=== PATIENT | male | born 1940 | race Caucasian/White ===

== ENCOUNTER 2018-12-09 18:14 | Inpatient (IN) ==
--- NOTE | 2018-12-09 18:50 | Diag Imaging Result Doc PS360 ---
EXAM: CHEST-1 VIEW HISTORY: fever TECHNIQUE: Chest single view COMPARISON: 11/10/2017 FINDINGS: The lungs are well expanded. The heart is not enlarged. The vessels are not distended. There are no infiltrates. No effusion identified. IMPRESSION: No pneumonia Electronically signed by Viktor Barrett 12/09/2018 6:48 PM
[2018-12-09 19:09] LABS: BASO# 0.02 X1000 (0.0-0.2); BASO% 0.1 % (0.0-0.8); EOS# 0.04 X1000 (0.0-0.7); EOS% 0.2 % (0.0-10.0); HEMATOCRIT 34.9 % (42.0-52.0); HEMOGLOBIN 11.5 g/dL (14.0-18.0); IMM GRAN# 0.05 X1000 (0.0-0.04); IMM GRAN% 0.2 % (0.0-0.5); LYMPH# 0.87 X1000 (1.2-3.4); LYMPH% 4.3 % (20.5-51.1); MCH 30.3 PG (27-31); MCV 92.1 FL (81-99); MONO# 1.19 X1000 (0.11-0.59); MONO% 5.9 % (1.7-9.3); NEUT# 17.92 X1000 (1.4-6.5); NEUT% 89.3 % (42.2-75.2); PLT 179 X1000 (130-400); RBC 3.79 XMIL (4.7-6.1); RDW 13.2 % (11.5-14.5); WBC 20.09 X1000 (4.8-10.8)
[2018-12-09 19:13] LABS: INR 2.45; PROTIME 27.2 Seconds (11.0-16.0)
[2018-12-09 19:14] LABS: PTT 44.5 Seconds (22.3-41.8)
--- NOTE | 2018-12-09 19:24 | PROVIDER DOCUMENTATION ---
HPI-Fever - General Chief Complaint: Male Stated Complaint: BLADDER ISSUES Time Seen by Provider: 12/09/18 18:57 Source: patient, family Allergies/Adverse Reactions: Patient Allergies Allergy/AdvReac Type Severity Reaction Status Date / Time alprazolam [From Xanax] Allergy Intermediate Unknown Verified 12/09/18 19:48 aspirin AdvReac Unknown Verified 12/09/18 19:48 Home Medications: Home Medication List Medication Instructions Recorded Confirmed Last Taken Type Lorazepam 0.5 mg PO BID 02/25/12 11/10/17 11/10/17 History Metformin [Glucophage] 500 mg PO QHS 02/25/12 11/10/17 11/09/17 History Pramipexole [Mirapex] 0.5 mg PO QHS 02/25/12 11/10/17 11/09/17 History Lisinopril [Zestril] 2.5 mg PO DAILY 07/08/15 11/10/17 11/10/17 History Amitriptyline [Elavil] 50 mg PO QHS 11/10/17 11/10/17 11/09/17 History Donepezil HCl 5 mg PO QHS 11/10/17 11/10/17 11/09/17 History Levothyroxine [Synthroid] 100 microgm PO QAM 11/10/17 11/10/17 Unknown History SIMVAstatin [Zocor] 40 mg PO QHS 11/10/17 11/10/17 11/09/17 History - History of Present Illness-Fever Nature of Presenting Problem: 78 yr old M, with PMHx significant for HTN, type 2 DM, frequent bladder and UTI, presents with one day hx of urinary frequency, incontinence and confusion. The patient's provides the history. She states that the patient began to experience urinary frequency yesterday, so much so that he required an adult di aper. He did not exhibit any other symptoms at that time, but this morning when they awoke, he continued to have urinary frequency, as well as a low grade of 100.2. A repeat temp of 100.4 was obtained later this afternoon, prior to presentation. No medication was given at home. The also reports that he exhibited some confusion, not being able to recall how many children he had. He was also noted to have generalized shakes. He denies nausea, vomiting, cough, changes in vision. Fever Severity/Quality: reports: low grade Onset/Duration: reports: 4-6 hours ago Timing: reports: still present Severity: reports: moderate Context: reports: confusion Recent Illness?: reports: none Cognitive Baseline: alert but confused Modifying Factors: improves with: nothing Associated Symptoms: reports: genitourinary problems, nausea, weakness Similar Symptoms Previously?: Yes (history of sepsis a few years ago) Recently seen or treated by another doctor?: No - Glascow Coma Score Best Eye Response (Steele): (4) open spontaneously Best Verbal Response (Steele): (5) oriented Best Motor Response (Yolanda): (6) obeys commands Steele Total: 15 Review of Systems - Adult - REVIEW OF SYSTEMS - ADULT Constitutional: reports: fever, fatique Eyes: reports: no symptoms reported Ears, Nose, Mouth & Throat: reports: no symptoms reported Cardiovascular: reports: no symptoms reported Respiratory: reports: no symptoms reported Gastrointestinal: reports: no symptoms reported Genitourinary: reports: frequency, incontinence Musculoskeletal: reports: back pain Integumentary: reports: no symptoms reported Neurological: reports: no symptoms reported Psychiatric: reports: no symptoms reported Endocrine: reports: no symptoms reported Hematologic/Lymphatic: reports: no symptoms reported Allergic/Immunologic: reports: no symptoms reported Past History - Adult - PAST MEDICAL HISTORY-ADULT Review of Records: reports: Medications Reviewed Major Childhood Illnesses: reports: denies history Cardiovascular: reports: HTN, hyperlipidemia Obstetrical/Gynecological: denies: denies history, - spont/elective, ectopic , endometriosis, fibroids, ovarian cysts, PID/STD, uterine/ovarian cancer, other Genitourinary: reports: incontinence, chronic UTI's Neurological: reports: dementia Endocrine/Immune: reports: Diabetes - PRIOR SURGERIES/PROCEDURES Surgical/Procedure History: reports: reviewed, not pertinent - IMMUNIZATION STATUS Childhood Immunizations: See Nurse Assessment Flu Vaccine: See Nurse Assessment - FAMILY HISTORY Family History: reviewed, not pertinent - SOCIAL HISTORY Smoking: denies Living Situation: family Physical Exam-General - PHYSICAL EXAM-ADULT Initial Vital Signs Reviewed: Yes - CONSTITUTIONAL General Appearance: alert, no apparent distress - EYES Eyes: PERRL/EOMI - HEAD, EARS, NOSE, MOUTH & THROAT HENMT: normocephalic/atraumatic - NECK Neck: non-tender - RESPIRATORY Respiratory: chest non-tender, lungs clear, normal breath sounds - CARDIOVASCULAR Cardiovascular: regular rate, rhythm, no JVD - GASTROINTESTINAL (ABDOMEN) Abdominal Exam: normal bowel sounds, non tender, soft - MUSCULOSKELETAL Back Exam: no CVA tenderness Extremity: non-tender - PSYCHIATRIC Psych/Mental Status: oriented x 3 Progress - PLAN OF CARE/RESULTS Progress/Plan/Lab Results: Vital Signs - 8 hr 12/09/18 18:16 12/09/18 18:29 12/09/18 18:32 Temperature 100.6 F H Pulse Rate 125 H Respiratory Rate 20 Blood Pressure 128/73 162/77 153/75 O2 Sat by Pulse Oximetry 96 96 96 12/09/18 19:02 12/09/18 19:32 12/09/18 19:39 Temperature 99.6 F Pulse Rate Respiratory Rate Blood Pressure 148/73 144/75 O2 Sat by Pulse Oximetry 96 97 12/09/18 20:02 12/09/18 20:32 12/09/18 21:02 Temperature Pulse Rate Respiratory Rate Blood Pressure 143/73 151/76 145/75 O2 Sat by Pulse Oximetry 96 95 96 12/09/18 21:32 Temperature Pulse Rate Respiratory Rate Blood Pressure 150/78 O2 Sat by Pulse Oximetry 96 Laboratory Results - last 24 hr 12/09/18 12/09/18 12/09/18 18:44 18:44 18:44 WBC 20.09 H RBC 3.79 L Hgb 11.5 L Hct 34.9 L MCV 92.1 MCH 30.3 MCHC 33.0 RDW Std Deviation 13.2 Plt Count 179 MPV 11.0 H Immature Gran % (Auto) 0.2 Neut % (Auto) 89.3 H Lymph % (Auto) 4.3 L Coke % (Auto) 5.9 Eos % (Auto) 0.2 Baso % (Auto) 0.1 Immature Gran # (Auto) 0.05 H Neut # (Auto) 17.92 H Lymph # (Auto) 0.87 L Coke # (Auto) 1.19 H Eos # (Auto) 0.04 Baso # (Auto) 0.02 Segmented Neutrophils 89 H Lymphocytes 5 L Monocytes 6 Large Platelets OCCASIONAL PT INR PTT (Actin FS) Sodium 134 L Potassium 4.9 Chloride 101 Carbon Dioxide 24 L Anion Gap 9 BUN 25 H Creatinine 1.2 Estimated GFR/1.73 m2 59 BUN/Creatinine Ratio 21 Glucose 252 H Calculated Osmolality 281 Calcium 8.4 L Total Bilirubin 0.60 AST 31 ALT 31 Alkaline Phosphatase 107 Creatine Kinase 97 Troponin T Total Protein 6.0 L Albumin 3.7 Globulin 2.3 Albumin/Globulin Ratio 1.6 Plasma Lactate 2.0 Urine Source Urine Color Urine Turbidity Urine pH Ur Specific [place] Urine Protein Ur Glucose (Stick) Ur Ketones (Stick) Urine Blood Urine Nitrite Urine Bilirubin Urobilinogen Dipstick Urine Leukocytes Urine WBC (Auto) Urine RBC (Auto) U Epithel Cells (Auto) Urine Bacteria (Auto) 12/09/18 12/09/18 12/09/18 18:44 18:44 19:23 WBC RBC Hgb Hct MCV MCH MCHC RDW Std Deviation Plt Count MPV Immature Gran % (Auto) Neut % (Auto) Lymph % (Auto) Coke % (Auto) Eos % (Auto) Baso % (Auto) Immature Gran # (Auto) Neut # (Auto) Lymph # (Auto) Coke # (Auto) Eos # (Auto) Baso # (Auto) Segmented Neutrophils Lymphocytes Monocytes Large Platelets PT 27.2 H INR 2.45 PTT (Actin FS) 44.5 H Sodium Potassium Chloride Carbon Dioxide Anion Gap BUN Creatinine Estimated GFR/1.73 m2 BUN/Creatinine Ratio Glucose Calculated Osmolality Calcium Total Bilirubin AST ALT Alkaline Phosphatase Creatine Kinase Troponin T < 0.010 Total Protein Albumin Globulin Albumin/Globulin Ratio Plasma Lactate Urine Source CATH Urine Color YELLOW Urine Turbidity CLEAR Urine pH 7.0 Ur Specific [place] 1.024 Urine Protein 50 A Ur Glucose (Stick) >1000 A Ur Ketones (Stick) NEGATIVE Urine Blood MODERATE A Urine Nitrite NEGATIVE Urine Bilirubin NEGATIVE Urobilinogen Dipstick 12 A Urine Leukocytes LARGE A Urine WBC (Auto) TNTC A Urine RBC (Auto) TNTC A U Epithel Cells (Auto) <10 Urine Bacteria (Auto) 4+ 12/09/18 22:56 WBC RBC Hgb Hct MCV MCH MCHC RDW Std Deviation Plt Count MPV Immature Gran % (Auto) Neut % (Auto) Lymph % (Auto) Coke % (Auto) Eos % (Auto) Baso % (Auto) Immature Gran # (Auto) Neut # (Auto) Lymph # (Auto) Coke # (Auto) Eos # (Auto) Baso # (Auto) Segmented Neutrophils Lymphocytes Monocytes Large Platelets PT INR PTT (Actin FS) Sodium Potassium Chloride Carbon Dioxide Anion Gap BUN Creatinine Estimated GFR/1.73 m2 BUN/Creatinine Ratio Glucose Calculated Osmolality Calcium Total Bilirubin AST ALT Alkaline Phosphatase Creatine Kinase Troponin T Total Protein Albumin Globulin Albumin/Globulin Ratio Plasma Lactate 0.9 Urine Source Urine Color Urine Turbidity Urine pH Ur Specific [place] Urine Protein Ur Glucose (Stick) Ur Ketones (Stick) Urine Blood Urine Nitrite Urine Bilirubin Urobilinogen Dipstick Urine Leukocytes Urine WBC (Auto) Urine RBC (Auto) U Epithel Cells (Auto) Urine Bacteria (Auto) Orders Category Date Time Status Cardiac Monitoring DIRECTED Care 12/09/18 18:21 Active IV Insertion ORDERED Care 12/09/18 18:21 Completed Notify MD of + Sepsis Screen NOW Care 12/09/18 18:21 Active Notify Physician As Ordered Care 12/09/18 18:21 Active CHEST-1 VIEW [RAD] Stat Exams 12/09/18 18:21 Completed BLOOD CULTURE [BLDCUL] Stat Lab 12/09/18 18:44 Results CBC WITH DIFF [HEME] Stat Lab 12/09/18 18:44 Completed CK PROFILE [SP CHEM] Stat Lab 12/09/18 18:44 Completed COMPREHENSIVE METABOLIC PANEL [CHEM] Stat Lab 12/09/18 18:44 Completed LACTATE, PLASMA [CHEM] Lab 12/09/18 22:56 Completed LACTATE, PLASMA [CHEM] Lab 12/10/18 00:30 Uncollected LACTATE, PLASMA [CHEM] Q3H Lab 12/09/18 18:44 Completed PROTIME WITH INR [COAG] Stat Lab 12/09/18 18:44 Completed PTT [COAG] Stat Lab 12/09/18 18:44 Completed TROPONIN T Stat Lab 12/09/18 18:44 Completed URINALYSIS W/POSS RFLX CULT [URINALYSIS] Stat Lab 12/09/18 19:23 Completed URINE CULTURE [RM] Routine Lab 12/09/18 19:48 Received 0.9% Sodium Chloride Inj [Ns] 1,000 ml Med 12/09/18 19:29 Discontinued IV 999 mls/hr 0.9% Sodium Chloride Inj [Ns] 1,000 ml Med 12/09/18 20:13 Discontinued IV 999 mls/hr Piperacillin/Tazobactam [Zosyn] 3.375 gm Med 12/09/18 21:00 Active 0.9% Sodium Chloride Inj [Ns] 50 ml IV Q6H Oxygen Device Stat Oth 12/09/18 18:21 Completed Transfer/Admit Order [TRANSFER] Routine Transfer 12/09/18 20:45 Ordered Result Diagrams: 12/09/18 18:44 12/09/18 18:44 - REASSESSMENT Reassessment #1 Time Reassessed: 20:17 Reassessment Comment: stable, temp down to 99.6 - CONSULTS/PCP/HOSPITALIST Notification #1 *Consult/PCP/Hospitalist*: Dr. Nuñez Time Discussed: 20:44 Consult Disposition: Admit Departure - Departure Date of Disposition Decision: 12/09/18 Time of Disposition Decision: 20:50 DIAGNOSIS: UTI (urinary tract infection) Qualifiers: Urinary tract infection type: acute cystitis Hematuria presence: with hematuria Qualified Code(s): N30.01 - Acute cystitis with hematuria Disposition: ADMITTED INPATIENT 09 Certified Medical Emergency: Urgent Condition: Fair Referrals and Follow-Ups: Perez Martel MD [Primary Care Provider] - - Critical Care Note This patient required my direct & personal management of CC.: No Attestation - Physician/ EVELYN Attestation Patient care was provided by Advanced Practice Provider:: No The physician spent face to face time with patient:: Yes Advanced Practice Provider documentation review:: Supervising physician onsite and consulted in the evaluation and care of this patient. The physician did have a face to face encounter with the patient.
[2018-12-09 19:29] LABS: LYMPHS 5 % (21-51); MONO 6 % (1-9); SEGS 89 % (42-75)
[2018-12-09] MEDS ORDERED: NS 1,000 ML IV ONE ×2 (19:29→20:13)
[2018-12-09 19:30] LABS: LARGE PLATELETS OCCASIONAL
[2018-12-09 19:41] LABS: ALB/GLOB RATIO 1.6; ALBUMIN 3.7 g/dL (3.5-5.0); CALCIUM 8.4 mg/dL (8.8-10.2); CREATININE 1.2 mg/dL (0.7-1.2); POTASSIUM 4.9 mmol/L (3.5-5.1); TOTAL BILIRUBIN 0.6 mg/dL (0.20-1.00)
[2018-12-09 19:43] LABS: URINE SOURCE CATH
[2018-12-09 19:45] LABS: BILIRUBIN URINE NEGATIVE (NEGATIVE); BLOOD URINE MODERATE (NEGATIVE); COLOR YELLOW; GLUCOSE URINE >1000 mg/dL (NEGATIVE); KETONE URINE NEGATIVE (NEGATIVE); LEUKOCYTES URINE LARGE (NEGATIVE); NITRITE URINE NEGATIVE (NEGATIVE); PROTEIN URINE 50 mg/dL (NEGATIVE); SP GRAVITY URINE 1.024; TURBIDITY URINE CLEAR (CLEAR); UROBILINOGEN URINE 12 mg/dL (NORMAL)
[2018-12-09 19:46] LABS: UR EPITHELIAL CELLS <10 /HPF (<10); URINE BACTERIA 4+ /HPF; URINE RBC TNTC /HPF (<10); URINE WBC TNTC /HPF (<10)
[2018-12-09] MEDS ORDERED: ZOSYN 3.375 GM in NS 50 ML IV SCH (21:00)
--- NOTE | 2018-12-09 21:58 | HISTORY AND PHYSICAL ---
PRIMARY CARE PHYSICIAN: Dr. Martel. CHIEF COMPLAINT: Urinary frequency, fever, chills for several days. HISTORY OF PRESENT ILLNESS: A 78-year-old male with a history of diabetes mellitus type 2, sleep apnea, CVA, hypothyroidism who had presented to emergency department due to patient having fever and chills and urinary frequency for the past several days. The patient's states that he was also getting confused more than usual. The patient was evaluated in the emergency department. His symptoms were consistent with possible early sepsis. Subsequently, he will require admission for further management. At the time of my examination, patient was able to deny any headache, nausea, vomiting, diarrhea, chest pain, shortness of breath or any weight changes but complained of not feeling well and having fevers and urinary frequency. PAST MEDICAL HISTORY: Include diabetes mellitus type 2, sleep apnea, hyperlipidemia, CVA, hypothyroidism, COPD. PAST SURGICAL HISTORY: Superficial skin surgery for skin cancer. ALLERGIES: Xanax and aspirin. CURRENT MEDICATIONS: He does not recall and nursing staff will reconcile. SOCIAL HISTORY: No history of smoking, history of alcohol use in the past, he is currently sober. Denies any history of illicit drug use. FAMILY HISTORY: Positive for coronary disease in mother. REVIEW OF SYSTEMS: Fourteen point review of systems is as in HPI. Other systems negative. PHYSICAL EXAMINATION: GENERAL: Cooperative, friendly male. He is resting more comfortably now. VITAL SIGNS: Temperature 100.6 degrees, pulse 125, respirations 20, blood pressure 128/73. HEENT: Atraumatic, normocephalic. Extraocular movements intact. PERRLA. The patient is hard of hearing. NECK: No masses. CHEST: Clear to auscultation. CARDIOVASCULAR: Regular rate and rhythm. ABDOMEN: Soft. Positive bowel sounds. EXTREMITIES: No edema. NEUROLOGIC: He is awake, alert, oriented x3. : No bladder distention. SKIN: Warm. LABORATORIES AND STUDIES: WBC 20.09, hemoglobin 11.5, hematocrit 34.9, platelets 179,000. Sodium 134, potassium 4.9, chloride 101, CO2 24, BUN is 25, creatinine 1.2, glucose 252. UA shows leukocytes and +4 bacteria. Chest x-ray is negative. ASSESSMENT: 78-year-old male with a history of diabetes mellitus type 2, sleep apnea, hypertension and hyperlipidemia who presented to the emergency department due to patient having fevers and chills and urinary frequency for the past several days. He was evaluated in the emergency department. Symptoms consistent with early sepsis. Subsequently he will require admission for further management. 1. Early sepsis with symptoms of altered mental status, fever, chills, tachycardia. 2. Urinary tract infection. 3. Diabetes mellitus type 2. 4. Hypertension. PLAN: 1. We will admit patient to medical floor with telemetry. 2. We will check blood cultures and urine cultures. Start patient on IV antibiotics. 3. We will monitor blood glucose put patient on sliding scale insulin regimen. 4. Monitor blood pressure closely. 5. Put patient on DVT prophylaxis with SCDs. 6. We will continue to follow and reassess. Make further recommendation based on patient's clinical course. cc: Neri Nuñez MD
[2018-12-10] MEDS ORDERED: ZOFRAN IV PRN (00:28)
[2018-12-10] MEDS: NS 1,000 ML IV SCH ×3 (01:15→20:16)
[2018-12-10] MEDS: ZOSYN 3.375 GM in NS 50 ML IV SCH ×4 (01:22→18:01)
[2018-12-10] MEDS: HUMULIN R SUBQ SCH ×5 (01:36→20:10)
[2018-12-10] MEDS: TYLENOL PO PRN ×3 (02:45→20:08)
[2018-12-10 06:50] LABS: BASO# 0.02 X1000 (0.0-0.2); BASO% 0.1 % (0.0-0.8); EOS# 0.07 X1000 (0.0-0.7); EOS% 0.4 % (0.0-10.0); HEMATOCRIT 34.4 % (42.0-52.0); HEMOGLOBIN 11.1 g/dL (14.0-18.0); IMM GRAN# 0.05 X1000 (0.0-0.04); IMM GRAN% 0.3 % (0.0-0.5); LYMPH# 1.59 X1000 (1.2-3.4); LYMPH% 9.2 % (20.5-51.1); MCHC 32.3 g/dL (33-37); MONO# 1.02 X1000 (0.11-0.59); MONO% 5.9 % (1.7-9.3); MPV 11.3 FL (7.4-10.4); NEUT# 14.52 X1000 (1.4-6.5); NEUT% 84.1 % (42.2-75.2); PLT 165 X1000 (130-400); RDW 13.3 % (11.5-14.5); WBC 17.27 X1000 (4.8-10.8)
[2018-12-10 07:05] LABS: AGAP 5; BUN 15 mg/dL (8-22); CALCIUM 8.4 mg/dL (8.8-10.2); CHLORIDE 103 mmol/L (98-107); COSMO 269; ESTIMATED GFR > 60; GLUCOSE 132 mg/dL (70-104); POTASSIUM 4.6 mmol/L (3.5-5.1); SODIUM 133 mmol/L (136-145); TCO2 25 mmol/L (25-35)
--- NOTE | 2018-12-10 11:00 | PROGRESS NOTE ---
DATE: 12/10/2018 A 78-year-old, white gentleman admitted with urinary frequency, dysuria, fever, and chills. The patient also had some confusion. The patient evaluated in the ER. Found to have significant UTI. Urinalysis did reveal too numerous to count WBC, RBC, large leukocyte, and 4+ bacteria. The patient also had some confusion and patient was admitted for further care. The patient does have a complex medical history with diabetes, hypertension, history of CVA with left-sided weakness, sleep apnea, hyperlipidemia, hypothyroidism, and COPD. The patient is doing fair. He does have a mild cough with scanty sputum production. No typical chest pain or palpitations. Denied abdominal pain, nausea, vomiting. No diarrhea, blood, or mucus in the stool. Minimal residual weakness on the left side. No heat or cold intolerance. PAST MEDICAL HISTORY: NIDDM, sleep apnea, CVA, hypothyroidism, COPD, hyperlipidemia. PHYSICAL EXAMINATION: Vital Signs: Blood pressure 143/74, pulse is 84, respirations 21, temperature 98.4 degrees, T-max was 100.2 degrees. Skin: Senile turgor. HEENT: Head atraumatic and normocephalic. Limestone conjunctivae. Anicteric sclerae. Extraocular muscle movement normal. Fundus cannot be penetrated. Good oral hygiene. No tonsillopharyngeal congestion or exudate. Ears and nose benign. Neck: Supple. No JVD, thyromegaly, or lymphadenopathy. Chest: Bibasilar crepitation. Heart: S1 and S2 heard. Abdomen: Soft, globular. Bowel sounds present. VENTURE CAPITAL ANALYST: Alert, awake. Able to move all 4 limbs. Patient does have some weakness on the left side. LAB DATA: Urinalysis: Results reviewed. Electrolytes: Sodium 133, potassium 4.6, blood sugar results reviewed, calcium 8.4. PT/INR 2.45. CBC: Patient did have leukocytosis, hemoglobin 11.1, hematocrit 34.4, platelets 165,000. The patient does have a left shift. CONSIDERATION: 1. Metabolic encephalopathy, most likely due to urinary tract infection. 2. Noninsulin-dependent diabetes mellitus. 3. History of cerebrovascular accident with left-sided weakness. 4. Hypertension. 5. Sleep apnea. 6. History suggestive of chronic obstructive pulmonary disease. PLAN: Patient's home medications reviewed and continued. We will continue current antibiotics. The patient does have a history of hypothyroidism, on Synthroid. We will continue. Hyperlipidemia, on Zocor. BPH, on Flomax. Labs and medications noted. Overall plan discussed with the patient and he is in agreement. cc: MD Romaine Morris MD
[2018-12-10] MEDS: MIRALAX PO SCH (12:01)
[2018-12-10] MEDS: SYNTHROID PO SCH (12:02)
[2018-12-10] MEDS: ATIVAN PO SCH ×2 (12:02→20:08)
[2018-12-10] MEDS: PRINIVIL PO SCH (12:02)
[2018-12-10] MEDS: FLOMAX PO SCH (18:01)
[2018-12-10] MEDS: ELAVIL PO SCH (20:08)
[2018-12-10] MEDS: COUMADIN PO SCH (20:08)
[2018-12-10] MEDS: MIRAPEX PO SCH (20:08)
[2018-12-10] MEDS: ARICEPT PO SCH (20:08)
[2018-12-10] MEDS: ZOCOR PO SCH (20:08)
[2018-12-10] MEDS: GLUCOPHAGE PO SCH (20:08)
[2018-12-11] MEDS: ZOSYN 3.375 GM in NS 50 ML IV SCH ×4 (00:20→20:56)
[2018-12-11] MEDS: HUMULIN R SUBQ SCH ×4 (06:07→21:03)
[2018-12-11] MEDS: SYNTHROID PO SCH (06:25)
[2018-12-11 06:40] LABS: INR 1.75; PROTIME 20.8 Seconds (11.0-16.0)
[2018-12-11 06:46] LABS: MCH 30.5 PG (27-31); MCHC 33.3 g/dL (33-37); MCV 91.4 FL (81-99); RBC 3.94 XMIL (4.7-6.1)
[2018-12-11 06:47] LABS: BASO# 0.02 X1000 (0.0-0.2); BASO% 0.2 % (0.0-0.8); EOS# 0.12 X1000 (0.0-0.7); EOS% 1.3 % (0.0-10.0); LYMPH# 0.95 X1000 (1.2-3.4); LYMPH% 10.3 % (20.5-51.1); MONO# 0.57 X1000 (0.11-0.59); MONO% 6.2 % (1.7-9.3); MPV 11.1 FL (7.4-10.4); NEUT# 7.54 X1000 (1.4-6.5); PLT 154 X1000 (130-400)
[2018-12-11 06:59] LABS: AGAP 10; ALBUMIN 2.9 g/dL (3.5-5.0); ALKALINE PHOSPHATASE 102 U/L (32-122); BUN 13 mg/dL (8-22); CALCIUM 8.6 mg/dL (8.8-10.2); CHLORIDE 104 mmol/L (98-107); COSMO 275; ESTIMATED GFR > 60; GLUCOSE 160 mg/dL (70-104); GOT 20 U/L (10-34); GPT 25 U/L (10-44); SODIUM 136 mmol/L (136-145); TCO2 22 mmol/L (25-35); TOTAL BILIRUBIN 0.59 mg/dL (0.20-1.00); TOTAL PROTEIN 5.8 g/dL (6.3-8.3)
[2018-12-11] MEDS: MIRALAX PO SCH (09:09)
[2018-12-11] MEDS: ATIVAN PO SCH ×2 (09:10→21:02)
[2018-12-11] MEDS: PRINIVIL PO SCH (09:10)
[2018-12-11 09:36] LABS: INR 1.65; PROTIME 19.8 Seconds (11.0-16.0)
[2018-12-11] MEDS: TYLENOL PO PRN (15:15)
--- NOTE | 2018-12-11 19:32 | PROGRESS NOTE ---
DATE: 12/11/2018 SUBJECTIVE: A 78-year-old white gentleman was admitted to the hospital with altered mental status and UTI. Apparently, patient had some mental breakdown prior to this admission, drove all the way to the [facility] in [place]. Obviously, the patient had a workup done there. I do not have the reports. We will review the reports from medical records. He had abnormal CT. We will also review. Interval history was reviewed. Patient is eating well, intermittent choking spell. PAST MEDICAL HISTORY: Reviewed. SURGICAL HISTORY: Reviewed. MEDICINES: Reviewed. ALLERGIES: Alprazolam and aspirin. OBJECTIVE: Vital Signs: He has a fever of 102, pulse 100, blood pressure is 159/82. HEENT Exam: Within normal limits. Neck: Supple. Chest: Bilateral air entry. Cardiovascular: Heart sounds are regular. Abdomen: Belly is soft, nontender. Taylor was placed. INVESTIGATIONS: White cell count came down from 20 to 9.2, hematocrit 36, platelets 154,000, PT 19, INR 1.6. Sodium 136, potassium 4.0, chloride 104, BUN 13, creatinine 1.0, glucose 160. Liver function tests were normal and urine cultures positive for E coli. Blood cultures are negative. ASSESSMENT AND PLAN: 1. Urinary tract infection. Continue IV Zosyn. 2. Intermittent choking. Barium swallow with speech evaluation. Consult GI. 3. PT consult. 4. Restless legs syndrome on Mirapex. 5. Hyperlipidemia on Zocor. 6. Paroxysmal atrial fibrillation with stroke on warfarin. Continue daily monitor. 7. Anxiety on Ativan 0.5 p.o. b.i.d. 8. Hypothyroidism on Synthroid 100 mcg daily. 9. Mild cognitive impairment, Aricept 5 mg daily. 10. Chronic insomnia, Elavil 50 at bedtime and continue IV Zosyn and daily monitoring CBC, BMP, prothrombin time, abnormal CT. We will review the reports. 11. Discussed with family at bedside. LEVEL OF DOCUMENTATION: 30 minutes. cc: Romaine Martel MD
[2018-12-11] MEDS: COUMADIN PO SCH (21:02)
[2018-12-11] MEDS: FLOMAX PO SCH (21:02)
[2018-12-11] MEDS: MIRAPEX PO SCH (21:02)
[2018-12-11] MEDS: GLUCOPHAGE PO SCH (21:02)
[2018-12-11] MEDS: ARICEPT PO SCH (21:02)
[2018-12-11] MEDS: ELAVIL PO SCH (21:03)
[2018-12-11] MEDS: ZOCOR PO SCH (21:03)
[2018-12-12] MEDS: ZOSYN 3.375 GM in NS 50 ML IV SCH ×4 (01:53→20:03)
[2018-12-12] MEDS: HUMULIN R SUBQ SCH ×4 (06:05→21:00)
[2018-12-12] MEDS: SYNTHROID PO SCH (06:05)
[2018-12-12 06:45] LABS: INR 1.68; PROTIME 20.1 Seconds (11.0-16.0)
[2018-12-12 07:05] LABS: BASO# 0.02 X1000 (0.0-0.2); BASO% 0.3 % (0.0-0.8); EOS# 0.19 X1000 (0.0-0.7); EOS% 2.8 % (0.0-10.0); HEMATOCRIT 35.1 % (42.0-52.0); HEMOGLOBIN 11.7 g/dL (14.0-18.0); IMM GRAN# 0.02 X1000 (0.0-0.04); IMM GRAN% 0.3 % (0.0-0.5); LYMPH# 0.74 X1000 (1.2-3.4); MCH 30.2 PG (27-31); MCHC 33.3 g/dL (33-37); MCV 90.5 FL (81-99); MONO# 0.63 X1000 (0.11-0.59); MONO% 9.4 % (1.7-9.3); NEUT# 5.12 X1000 (1.4-6.5); NEUT% 76.2 % (42.2-75.2); PLT 172 X1000 (130-400); RBC 3.88 XMIL (4.7-6.1); RDW 12.9 % (11.5-14.5); WBC 6.72 X1000 (4.8-10.8)
[2018-12-12 07:43] LABS: AGAP 11; BUN 16 mg/dL (8-22); CALCIUM 8.7 mg/dL (8.8-10.2); CHLORIDE 103 mmol/L (98-107); COSMO 276; CREATININE 0.9 mg/dL (0.7-1.2); ESTIMATED GFR > 60; GLUCOSE 154 mg/dL (70-104); POTASSIUM 4.1 mmol/L (3.5-5.1); SODIUM 136 mmol/L (136-145); TCO2 22 mmol/L (25-35)
--- NOTE | 2018-12-12 10:52 | Diag Imaging Result Doc PS360 ---
EXAM: BA SWALLOW W/VIDEO SPEECH THER 12/11/2018 HISTORY: possible aspiration TECHNIQUE: 164 images 150 mg, 28 seconds fluoroscopy time. COMMENT: The patient was able to swallow multiple times with liquid and thickened barium without aspiration. During fluoroscopy of the thoracic esophagus, there was a premature contraction of the upper thoracic esophagus which was associated with a mild degree of aspiration. There is no evidence of fixed stricture or obstruction in the thoracic esophagus. IMPRESSION: Episodic spasm in the upper thoracic esophagus. This was associated with a single episode of mild aspiration. Electronically signed by Flavio Clayton 12/12/2018 10:50 AM
[2018-12-12] MEDS: PRINIVIL PO SCH (11:04)
[2018-12-12] MEDS: ATIVAN PO SCH ×2 (11:05→20:04)
[2018-12-12] MEDS: MIRALAX PO SCH (11:05)
[2018-12-12] MEDS: FLOMAX PO SCH (17:24)
[2018-12-12] MEDS: ZOCOR PO SCH (20:03)
[2018-12-12] MEDS: COUMADIN PO SCH (20:03)
[2018-12-12] MEDS: MIRAPEX PO SCH (20:03)
[2018-12-12] MEDS: ELAVIL PO SCH (20:04)
[2018-12-12] MEDS: GLUCOPHAGE PO SCH (20:04)
[2018-12-12] MEDS: ARICEPT PO SCH (20:05)
--- NOTE | 2018-12-12 20:54 | PROGRESS NOTE ---
DATE: 12/12/2018 SUBJECTIVE: The patient choked yesterday. He is on NPO waiting for speech therapy evaluation, barium swallow, and still running fever. OBJECTIVE: Vital signs: On examination temp is 98 degrees. Vitals are stable. HEENT exam: Within normal limits. Neck: Is supple. Chest: Is clear. Heart: Sounds are regular. Abdomen: Belly is soft, nontender. Taylor was placed. INVESTIGATIONS: White cell count 6.7, hematocrit 35, platelet 172,000. PTT 20, INR 1.68. Sodium 136, potassium 4.1, chloride 103, BUN 16, creatinine 0.9, glucose 205. Urine cultures positive for E coli. Blood cultures were negative. ASSESSMENT: 1. Urinary tract infection with altered mental status. Continue on IV Zosyn. 2. Paroxysmal atrial fibrillation on warfarin with history of cerebrovascular accident in the past. 3. Dysphagia with possible choking. Waiting for the speech therapy evaluation. 4. Continue home medicines for diabetes and other problems. 5. We will review the prior CT scan report from [facility] from [place]. Continue present treatment. LEVEL OF DOCUMENTATION: 25 minutes. cc: Romaine Martel MD
[2018-12-13] MEDS: ZOSYN 3.375 GM in NS 50 ML IV SCH ×4 (01:13→20:04)
[2018-12-13] MEDS: HUMULIN R SUBQ SCH ×4 (06:00→20:24)
[2018-12-13] MEDS: SYNTHROID PO SCH (06:04)
[2018-12-13 06:27] LABS: INR 1.87
[2018-12-13] MEDS: MIRALAX PO SCH (09:32)
[2018-12-13] MEDS: ATIVAN PO SCH ×2 (09:32→20:10)
[2018-12-13] MEDS: PRINIVIL PO SCH (09:32)
[2018-12-13] MEDS ORDERED: CALMOSEPTINE OINTMENT TOP PRN (09:52)
[2018-12-13] MEDS: FLOMAX PO SCH (18:31)
[2018-12-13] MEDS: GLUCOPHAGE PO SCH (20:10)
[2018-12-13] MEDS: COUMADIN PO SCH (20:10)
[2018-12-13] MEDS: ELAVIL PO SCH (20:10)
[2018-12-13] MEDS: ARICEPT PO SCH (20:10)
[2018-12-13] MEDS: ZOCOR PO SCH (20:10)
[2018-12-13] MEDS: MIRAPEX PO SCH (20:10)
--- NOTE | 2018-12-13 21:33 | PROGRESS NOTE ---
DATE: 12/13/2018 SUBJECTIVE: The patient is a little better, eating well. No signs or symptoms of aspiration. OBJECTIVE: Vital Signs: Temperature is 98 degrees. Vitals are stable. HEENT: Exam within normal limits. Neck: Supple. Chest: Clear. Heart: Sounds are regular. Abdomen: Belly is soft, nontender. Good bowel sounds. Neurologic: No neurological deficits. ASSESSMENT AND PLAN: 1. Altered mental status, improving. 2. Urinary tract infection with Escherichia coli. Continue on IV Zosyn. 3. Discontinue Taylor today. 4. Out of the bed with PT. 5. Advanced the diet, closely monitoring these symptoms of signs of aspiration. 6. PAF with a stroke, currently on warfarin, doing well. DISPOSITION.: wants to go for rehab placement. Sheetrock Applicator consult next previous CT scan was reviewed. No obvious masses noted except a small nodule in the left lung. We will discuss with in the morning. Continue present treatment. LEVEL OF DOCUMENTATION: 25 minutes. cc: Romaine Martel MD
[2018-12-14] MEDS: ZOSYN 3.375 GM in NS 50 ML IV SCH ×4 (01:16→20:16)
[2018-12-14] MEDS: HUMULIN R SUBQ SCH ×4 (06:07→21:38)
[2018-12-14] MEDS: SYNTHROID PO SCH (06:07)
[2018-12-14 06:49] LABS: INR 2.13; PROTIME 24.4 Seconds (11.0-16.0)
[2018-12-14] MEDS: PRINIVIL PO SCH (09:15)
[2018-12-14] MEDS: MIRALAX PO SCH (09:16)
[2018-12-14] MEDS: ATIVAN PO SCH ×2 (09:16→21:38)
[2018-12-14] MEDS: FLOMAX PO SCH (18:02)
[2018-12-14] MEDS: ZOCOR PO SCH (20:17)
[2018-12-14] MEDS: ELAVIL PO SCH (20:17)
[2018-12-14] MEDS: GLUCOPHAGE PO SCH (20:17)
[2018-12-14] MEDS: MIRAPEX PO SCH (20:17)
[2018-12-14] MEDS: ARICEPT PO SCH (20:17)
[2018-12-14] MEDS: COUMADIN PO SCH (20:26)
--- NOTE | 2018-12-14 21:13 | PROGRESS NOTE ---
DATE: 12/14/2018 SUBJECTIVE: The patient is doing little better. Condom catheter was taken out. He had a large bowel movement. is at bedside and wants to go for rehab. Paperwork is being done. He is medically stable. OBJECTIVE: Temperature is 97 degrees, pulse is 85, blood pressure 135/65, 94% no room air.HEENT: No change. INVESTIGATIONS: Urine cultures E coli. Blood cultures were negative, which is ESBL negative. ASSESSMENT AND PLAN: 1. Altered mental status improving. 2. Escherichia coli. Continue on Levaquin for 2 weeks. 3. Diabetes, stable. 4. Hyperlipidemia, stable. 5. Hypothyroidism on Synthroid. 6. Hypertension on lisinopril 2.5 mg daily. I did review the CT results discussed with the patient. There are no alarming nodules suspicious for malignancy. 7. We will do outpatient workup. Dr. Alarcon. Continue out of the bed with physical therapy. Waiting to be placement at [facility]. We will do the paperwork for tomorrow. LEVEL OF DOCUMENTATION: 25 minutes. cc: Romaine Martel MD
[2018-12-15] MEDS: ZOSYN 3.375 GM in NS 50 ML IV SCH ×2 (02:56→09:01)
--- NOTE | 2018-12-15 06:05 | DISCHARGE SUMMARY ---
ADMISSION DATE: 12/09/2018 DISCHARGE DATE: 12/15/2018 DISCHARGING DIAGNOSES: 1. Altered mental status due to metabolic encephalopathy. 2. Urinary tract infection with ESBL negative E. Coli. 3. History of prostatitis. 4. Type 2 diabetes. 5. Sleep apnea. 6. Hyperlipidemia. 7. Cerebrovascular accident. 8. Hypothyroidism. 9. Chronic obstructive pulmonary disease. 10. History of kidney stones. 11. Sleep apnea. 12. History of dysautonomia. 13. History of PAF 14. Restless legs syndrome. 15. Umbilical hernia. PAST SURGICAL HISTORY: 1. Penile prosthetic device. 2. UPPP. 3. Right cataract surgery. 4. Melanoma removed. 5. Right zygoma. 6. Benign prostate biopsies. BRIEF HISTORY: Please see the H and P that was done by hospitalist. In brief, he is a 78-year- old white gentleman who recently had intermittent mental status changes admitted to [facility] for altered mental status. The patient was seen by psychiatrist. He has mild cognitive impairment based on the mini-mental exam. Anyhow, he was admitted with a fever of 102, and altered mental status. Urine positive for ESBL Escherichia coli. The patient was given IV Zosyn. It is sensitive to Levaquin. Condom catheter was placed. He was extremely weak and given physical therapy. The patient's requests to go for rehab for convalescence. Patient had CT of the chest that was done in [place]. I did review and there were no suspicious lesions for having any malignancy. Findings were reassuring. There is a very subtle nodule on the left lower lobe, which is less than 2 mm. The patient came back to the [facility] and waiting for rehab placement. LABORATORY: CBC: White cell count 6.7, hematocrit 35, and platelets 172,000. PT 24, INR 2.13, and glucose 200. Sodium 136, potassium 4.1, chloride 103, BUN 16, creatinine 0.9. Urine cultures E. Coli ESBL negative. Blood cultures were negative. DISCHARGE INSTRUCTIONS: 1. Mirapex 0.5 mg at bedtime. 2. Metformin 500 daily. 4. Zestril 2.5 daily. 5. Elavil 50 at bedtime. 6. Aricept 5 mg daily. 7. Synthroid 100 mcg daily. 8. Simvastatin 40 daily. 9. Warfarin 5 and 10 mg every other day, and check on it every 3 days since he has been on antibiotics. 10. Flomax 0.4 daily. 11. MiraLAX 17 g daily. 12. Finasteride 5 mg daily. 13. Levaquin 500 daily for 10 days. 14. Initiate vaccination protocol. 15. Pneumococcal vaccine 23 was given in 2009. We will give pneumococcal 13 prior to the discharge. cc: Romaine Martel MD MTDD
[2018-12-15] MEDS: SYNTHROID PO SCH (06:29)
[2018-12-15] MEDS: HUMULIN R SUBQ SCH ×2 (06:50→11:11)
[2018-12-15 07:56] VITALS: BP 138/74
[2018-12-15] MEDS ORDERED: PREVNAR 13 IM ONE (08:29)
[2018-12-15] MEDS: PRINIVIL PO SCH (09:01)
[2018-12-15] MEDS: MIRALAX PO SCH (09:01)
[2018-12-15] MEDS: ATIVAN PO SCH (09:01)
== END 2018-12-15 13:21 | DRG 689 ==
LOC: ED 18:14 → 3N 18:15 → SUATTDRO 18:15
PROVIDERS: ADMIT Internal Medicine; ATTEND Internal Medicine

== ENCOUNTER 2019-02-22 13:04 | Inpatient (IN) ==
[2019-02-22] MEDS ORDERED: CARDIZEM IV ONE (13:38)
[2019-02-22] MEDS ORDERED: NS 1,000 ML IV ONE ×3 (13:39→16:58)
[2019-02-22 13:54] LABS: BASO# 0.02 X1000 (0.0-0.2); BASO% 0.1 % (0.0-0.8); EOS# 0.02 X1000 (0.0-0.7); EOS% 0.1 % (0.0-10.0); HEMOGLOBIN 11.1 g/dL (14.0-18.0); IMM GRAN# 0.02 X1000 (0.0-0.04); IMM GRAN% 0.1 % (0.0-0.5); LYMPH# 0.73 X1000 (1.2-3.4); LYMPH% 5.1 % (20.5-51.1); MCH 29.8 PG (27-31); MCHC 32.6 g/dL (33-37); MCV 91.4 FL (81-99); MONO# 0.89 X1000 (0.11-0.59); MONO% 6.2 % (1.7-9.3); MPV 10.9 FL (7.4-10.4); NEUT# 12.75 X1000 (1.4-6.5); NEUT% 88.4 % (42.2-75.2); PLT 163 X1000 (130-400); RBC 3.72 XMIL (4.7-6.1); RDW 12.6 % (11.5-14.5); WBC 14.43 X1000 (4.8-10.8)
--- NOTE | 2019-02-22 14:01 | Diag Imaging Result Doc PS360 ---
EXAM: CHEST-1 VIEW HISTORY: altered MSE TECHNIQUE: Single view COMPARISON: 12/09/2018 FINDINGS: The lungs are well expanded. The heart is borderline mildly prominent. The vessels are not distended. There are no infiltrates. No effusion identified. IMPRESSION: Stable chest Electronically signed by Viktor Barrett 02/22/2019 1:59 PM
[2019-02-22 14:03] LABS: BANDS 6 % (0-1); LYMPHS 12 % (21-51); SEGS 82 % (42-75)
--- NOTE | 2019-02-22 14:19 | EKG Report ---
Test Performed on : 02/22/2019 1:33:06 PM Test Reason : afib? Blood Pressure : / mmHG Vent. Rate : 118 BPM Atrial Rate : 084 BPM P-R Int : 000 ms QRS Dur : 098 ms QT Int : 384 ms P-R-T Axes : 000 014 235 degrees QTc Int : 538 ms Atrial fibrillation. with rapid ventricular response. Marked ST abnormality, possible inferior subendocardial injury Marked ST abnormality, possible anteroseptal subendocardial injury Prolonged QT Abnormal ECG When compared with ECG of 11-NOV-2017 06:55, Significant changes have occurred Unconfirmed Result
--- NOTE | 2019-02-22 14:19 | Diag Imaging Result Doc PS360 ---
EXAM: CT HEAD W/O CONTRAST HISTORY: SUDDEN ALTERED MSE, ON COUMADIN TECHNIQUE: CT head without contrast COMPARISON: 11/10/2017 FINDINGS: No parenchymal hemorrhage. No epidural or subdural hematoma. No subarachnoid hemorrhage. Mild atrophy with chronic microvascular ischemic changes. No mass identified on this noncontrasted exam. No hydrocephalus. No sinus opacification. IMPRESSION: 1.No hemorrhage 2.There is atrophy with chronic microvascular ischemic changes similar to the prior study This exam was performed using automated exposure control, adjustment of mA or kV according to patient size, and/or use of iterative reconstruction technique. Electronically signed by Viktor Barrett 02/22/2019 2:17 PM
[2019-02-22 14:21] LABS: AGAP 15; ALB/GLOB RATIO 1.9; ALBUMIN 3.7 g/dL (3.5-5.0); ALKALINE PHOSPHATASE 94 U/L (32-122); BUN 33 mg/dL (8-22); CALCIUM 8.4 mg/dL (8.8-10.2); CHLORIDE 95 mmol/L (98-107); COSMO 275; ESTIMATED GFR > 60; GLUCOSE 223 mg/dL (70-104); GOT 16 U/L (10-34); GPT 12 U/L (10-44); MAGNESIUM 1.6 mg/dL (1.5-2.7); POTASSIUM 3.6 mmol/L (3.5-5.1); SODIUM 130 mmol/L (136-145); TCO2 20 mmol/L (25-35); TOTAL BILIRUBIN 0.56 mg/dL (0.20-1.00); TOTAL PROTEIN 5.7 g/dL (6.3-8.3)
[2019-02-22] MEDS ORDERED: LEVAQUIN 500 MG/D5W 500 MG/100 ML IVPB IV ONE (15:30)
[2019-02-22 15:51] LABS: ALLEN TEST NO; BE -9.3 mmoll (-3.0-3.0); BLOOD TYPE ARTERIAL; HCO3-(ACT) 17.6 mmoll (20.0-26.0); METHB 0.7 % (0.0-1.5); O2(CT) 14.1 mL/dL (15.0-23.0); O2HB 91.6 % (95.0-99.0); PO2(98.6) 73 mmHg (60-100); SAMPLE BLOOD; SAO2 93.2 % (95.0-100.0); THB 10.9 g/dL (11.5-17.4)
[2019-02-22 15:54] LABS: PCO2(98.6) 67 mmHg (35-45)
[2019-02-22 15:55] LABS: MODALITY VENTIMASK
--- NOTE | 2019-02-22 16:57 | PROVIDER DOCUMENTATION ---
This chart was entered by Sadie Lowe Scribe, acting as scribe for Primo Thurman MD. HPI-Neurological Disorder - General Stated Complaint: STROKE LIKE SX Time Seen by Provider: 02/22/19 13:17 Source: family Allergies/Adverse Reactions: Patient Allergies Allergy/AdvReac Type Severity Reaction Status Date / Time alprazolam [From Xanax] Allergy Intermediate Unknown Verified 12/09/18 19:48 aspirin AdvReac Unknown Verified 12/09/18 19:48 Home Medications: Home Medication List Medication Instructions Recorded Confirmed Last Taken Type Metformin [Glucophage] 500 mg PO QHS 02/25/12 12/10/18 11/09/17 History Pramipexole [Mirapex] 0.5 mg PO QHS 02/25/12 12/10/18 11/09/17 History Lisinopril [Zestril] 2.5 mg PO DAILY 07/08/15 12/10/18 11/10/17 History Amitriptyline [Elavil] 50 mg PO QHS 11/10/17 12/10/18 11/09/17 History Donepezil HCl 5 mg PO QHS 11/10/17 12/10/18 11/09/17 History Levothyroxine [Synthroid] 100 microgm PO QAM 11/10/17 12/10/18 Unknown History SIMVAstatin [Zocor] 40 mg PO QHS 11/10/17 12/10/18 11/09/17 History Polyethylene Glycol 3350 [Miralax] 17 gm PO DAILY 12/10/18 12/10/18 Unknown History Tamsulosin HCl 0.4 mg DAILY 12/10/18 12/10/18 12/09/18 History Warfarin Sodium 5 mg EVERY OTHER DAY 12/10/18 12/10/18 12/09/18 History 5 Warfarin Sodium [Coumadin] 10 mg PO EVERY OTHER DAY 12/10/18 12/10/18 12/08/18 History Finasteride [Proscar] 5 mg PO QHS 12/13/18 12/14/18 Unknown History Levofloxacin [Levaquin] 500 mg PO DAILY #10 tab 12/15/18 Unknown Rx - History of Present Illness-Neuro Nature of Presenting Problem: Patient is a 78 year old male who presents to the ED via EMS with altered mental status. Family states finding the patient unresponsive prior to arrival. states she last saw the patient normal at 0700. reports history of CVA in 1996 with mild left side deficits. states patient takes Coumadin. Severity: reports: mild Onset/Duration: reports: just prior to arrival Timing: reports: improving Context: reports: found unresponsive by family Character of Altered Mental Status: reports: unresponsive Associated Symptoms: reports: denies symptoms Similar Symptoms Previously?: No Recently seen or treated by another doctor?: Yes Review of Systems - Adult - REVIEW OF SYSTEMS - ADULT ROS:: ROS per family Constitutional: reports: no symptoms reported Eyes: reports: no symptoms reported Ears, Nose, Mouth & Throat: reports: no symptoms reported Cardiovascular: reports: no symptoms reported Respiratory: reports: no symptoms reported Gastrointestinal: reports: diarrhea. denies: nausea, vomiting Genitourinary: reports: no symptoms reported Musculoskeletal: reports: no symptoms reported Integumentary: reports: no symptoms reported Neurological: reports: see HPI, other (AMS - unresponsive). denies: dizziness/vertigo, headache/migraines Psychiatric: reports: no symptoms reported Endocrine: reports: no symptoms reported Hematologic/Lymphatic: reports: no symptoms reported Allergic/Immunologic: reports: no symptoms reported All Other Systems: Reviewed and Negative Past History - Adult - PAST MEDICAL HISTORY-ADULT Review of Records: reports: Old Records Reviewed, Nursing Assessment Review, Medications Reviewed, Social history reviewed & non-contributory. Major Childhood Illnesses: reports: denies history Cardiovascular: reports: HTN, hyperlipidemia Respiratory: reports: COPD, sleep apnea Gastrointestinal: reports: denies history Obstetrical/Gynecological: reports: denies history Genitourinary: reports: chronic UTI's Musculoskeletal: reports: denies history Neurological: reports: CVA, dementia Endocrine/Immune: reports: Diabetes Other Conditions: reports: denies history - PRIOR SURGERIES/PROCEDURES Surgical/Procedure History: reports: reviewed, not pertinent - IMMUNIZATION STATUS Childhood Immunizations: See Nurse Assessment Flu Vaccine: See Nurse Assessment - FAMILY HISTORY Family History: reviewed, not pertinent - SOCIAL HISTORY Smoking: denies Substance Use: denies Living Situation: family Physical Exam- Neurological - Physical Exam-Neuro Initial Vital Signs Reviewed: Yes General Appearance: alert, no apparent distress, slow to respond. negative: obtunded HENMT: normocephalic/atraumatic, other (dry mucous membranes). negative: angioedema Head Injury: no evidence of injury. negative: active bleeding, lacerations Respiratory: chest non-tender, lungs clear, normal breath sounds. negative: crackles, rales, wheezing Cardiovascular: normal peripheral pulses, tachycardia. negative: systolic murmur Abdominal Exam: normal bowel sounds, non tender, soft. negative: guarding, rebound Extremity: normal inspection. negative: deformity, erythema Neurologic: grossly normal. negative: aphasia, facial droop, motor weakness Integumentary: normal color, normal turgor, diaphoresis. negative: pallor Psych/Mental Status: oriented x 3, other (slow to respond). negative: anxious Progress - PLAN OF CARE/RESULTS Progress/Plan/Lab Results: Vital Signs - 8 hr 02/22/19 13:10 02/22/19 13:15 02/22/19 13:30 Temperature 97.6 F Pulse Rate 114 H 113 H 134 H Respiratory Rate 26 H 25 H 25 H Blood Pressure 163/71 163/71 O2 Sat by Pulse Oximetry 97 94 L 92 L 02/22/19 13:40 02/22/19 13:45 02/22/19 13:51 Temperature Pulse Rate 117 H 137 H 123 H Respiratory Rate 22 27 H 26 H Blood Pressure 93/50 84/53 105/64 O2 Sat by Pulse Oximetry 86 L 93 L 93 L 02/22/19 14:12 02/22/19 14:16 02/22/19 14:21 Temperature Pulse Rate 123 H 123 H 122 H Respiratory Rate 25 H 23 27 H Blood Pressure 103/49 94/49 109/51 O2 Sat by Pulse Oximetry 91 L 86 L 92 L 02/22/19 14:27 02/22/19 14:32 02/22/19 14:36 Temperature Pulse Rate 127 H 138 H 127 H Respiratory Rate Blood Pressure 85/41 89/39 101/49 O2 Sat by Pulse Oximetry 97 95 91 L 02/22/19 14:46 02/22/19 14:51 02/22/19 14:56 Temperature Pulse Rate 115 H 117 H 113 H Respiratory Rate 26 H 34 H 28 H Blood Pressure 67/47 101/49 73/42 O2 Sat by Pulse Oximetry 91 L 91 L 91 L 02/22/19 15:01 02/22/19 15:06 02/22/19 15:11 Temperature Pulse Rate 123 H 144 H 118 H Respiratory Rate 25 H 28 H 28 H Blood Pressure 83/47 78/42 83/45 O2 Sat by Pulse Oximetry 90 L 93 L 90 L 02/22/19 15:16 02/22/19 15:21 02/22/19 15:26 Temperature Pulse Rate 121 H 115 H 131 H Respiratory Rate 26 H 25 H 28 H Blood Pressure 84/45 82/59 92/45 O2 Sat by Pulse Oximetry 87 L 91 L 90 L 02/22/19 15:31 02/22/19 15:36 02/22/19 15:41 Temperature Pulse Rate 117 H 116 H 120 H Respiratory Rate 25 H 34 H 24 Blood Pressure 89/64 55/43 78/52 O2 Sat by Pulse Oximetry 88 L 85 L 91 L 02/22/19 15:55 02/22/19 15:56 02/22/19 16:01 Temperature Pulse Rate 131 H 139 H 114 H Respiratory Rate 24 24 21 Blood Pressure 91/65 75/45 94/66 O2 Sat by Pulse Oximetry 99 99 99 02/22/19 16:06 02/22/19 16:09 02/22/19 16:11 Temperature Pulse Rate 123 H 118 H Respiratory Rate 22 22 Blood Pressure 100/54 89/58 O2 Sat by Pulse Oximetry 96 99 99 02/22/19 16:16 Temperature Pulse Rate 121 H Respiratory Rate 21 Blood Pressure 101/51 O2 Sat by Pulse Oximetry 99 Laboratory Results - last 24 hr 02/22/19 02/22/19 02/22/19 13:22 13:31 13:31 WBC 14.43 H RBC 3.72 L Hgb 11.1 L Hct 34.0 L MCV 91.4 MCH 29.8 MCHC 32.6 L RDW Std Deviation 12.6 Plt Count 163 MPV 10.9 H Immature Gran % (Auto) 0.1 Neut % (Auto) 88.4 H Lymph % (Auto) 5.1 L [place] % (Auto) 6.2 Eos % (Auto) 0.1 Baso % (Auto) 0.1 Immature Gran # (Auto) 0.02 Neut # (Auto) 12.75 H Lymph # (Auto) 0.73 L [place] # (Auto) 0.89 H Eos # (Auto) 0.02 Baso # (Auto) 0.02 Segmented Neutrophils 82 H Band Neutrophils 6 H Lymphocytes 12 L Specimen Type Sample Site pH pCO2 pO2 HCO3 Base Excess Oxyhemoglobin ABG O2 Sat (Calculated) ABG O2 Saturation ABG Carboxyhemoglobin ABG Methemoglobin Jarod Test A-a O2 Difference Total Hemoglobin Lactate Liter Flow Blood Gas Modality FiO2 % Sodium 130 L Potassium 3.6 Chloride 95 L Carbon Dioxide 20 L Anion Gap 15 BUN 33 H Creatinine 1.0 Estimated GFR/1.73 m2 > 60 BUN/Creatinine Ratio 33 Glucose 223 H POC Glucose 216 H Calculated Osmolality 275 Calcium 8.4 L Magnesium 1.6 Total Bilirubin 0.56 AST 16 ALT 12 Alkaline Phosphatase 94 Troponin T Ghi-F-Iblsuvbugyr Pept Total Protein 5.7 L Albumin 3.7 Globulin 2.0 Albumin/Globulin Ratio 1.9 Plasma Lactate 02/22/19 02/22/19 02/22/19 13:31 13:31 15:50 WBC RBC Hgb Hct MCV MCH MCHC RDW Std Deviation Plt Count MPV Immature Gran % (Auto) Neut % (Auto) Lymph % (Auto) [place] % (Auto) Eos % (Auto) Baso % (Auto) Immature Gran # (Auto) Neut # (Auto) Lymph # (Auto) [place] # (Auto) Eos # (Auto) Baso # (Auto) Segmented Neutrophils Band Neutrophils Lymphocytes Specimen Type ARTERIAL Sample Site L BRACHIAL pH 7.10 L* pCO2 67 H* pO2 73 HCO3 17.6 L Base Excess -9.3 L Oxyhemoglobin 91.6 L ABG O2 Sat (Calculated) 14.1 L ABG O2 Saturation 93.2 L ABG Carboxyhemoglobin 1.00 ABG Methemoglobin 0.7 Jarod Test NO A-a O2 Difference 200.0 Total Hemoglobin 10.9 L Lactate 1.50 Liter Flow 15.0 Blood Gas Modality VENTIMASK FiO2 % 50.0 Sodium Potassium Chloride Carbon Dioxide Anion Gap BUN Creatinine Estimated GFR/1.73 m2 BUN/Creatinine Ratio Glucose POC Glucose Calculated Osmolality Calcium Magnesium Total Bilirubin AST ALT Alkaline Phosphatase Troponin T < 0.010 Kvf-C-Hrpavrmvfpb Pept 311 Total Protein Albumin Globulin Albumin/Globulin Ratio Plasma Lactate 02/22/19 02/22/19 15:54 15:54 WBC RBC Hgb Hct MCV MCH MCHC RDW Std Deviation Plt Count MPV Immature Gran % (Auto) Neut % (Auto) Lymph % (Auto) [place] % (Auto) Eos % (Auto) Baso % (Auto) Immature Gran # (Auto) Neut # (Auto) Lymph # (Auto) [place] # (Auto) Eos # (Auto) Baso # (Auto) Segmented Neutrophils Band Neutrophils Lymphocytes Specimen Type Sample Site pH pCO2 pO2 HCO3 Base Excess Oxyhemoglobin ABG O2 Sat (Calculated) ABG O2 Saturation ABG Carboxyhemoglobin ABG Methemoglobin Jarod Test A-a O2 Difference Total Hemoglobin Lactate Liter Flow Blood Gas Modality FiO2 % Sodium Potassium Chloride Carbon Dioxide Anion Gap BUN Creatinine Estimated GFR/1.73 m2 BUN/Creatinine Ratio Glucose POC Glucose Calculated Osmolality Calcium Magnesium Total Bilirubin AST ALT Alkaline Phosphatase Troponin T < 0.010 Nqo-T-Jekvyjmupog Pept Total Protein Albumin Globulin Albumin/Globulin Ratio Plasma Lactate 1.7 Orders Category Date Time Status Admit [facility] Routine [id number] 02/22/19 16:01 Active Resuscitation Status Routine Care 02/22/19 14:04 Ordered CHEST-1 VIEW [RAD] Stat Exams 02/22/19 13:[address] HEAD W/O CONTRAST [CT] Stat Exams 02/22/19 13:29 Completed ABG [RESP] Routine Lab 02/22/19 15:50 Completed BNP [PRO B-NATRIURETIC PEPTIDE] Stat Lab 02/22/19 13:31 Completed CBC WITH DIFF [HEME] Stat Lab 02/22/19 13:31 Completed COMPREHENSIVE METABOLIC PANEL [CHEM] Stat Lab 02/22/19 13:31 Completed LACTATE, PLASMA [CHEM] Stat Lab 02/22/19 15:54 Completed MAGNESIUM [CHEM] Stat Lab 02/22/19 13:31 Completed TROPONIN T Stat Lab 02/22/19 13:31 Completed TROPONIN T Stat Lab 02/22/19 15:54 Completed URINALYSIS W/POSS RFLX CULT [URINALYSIS] Stat Lab 02/22/19 16:43 Ordered 0.9% Sodium Chloride Inj [Ns] 1,000 ml Med 02/22/19 13:39 Discontinued IV 500 mls/hr 0.9% Sodium Chloride Inj [Ns] 1,000 ml Med 02/22/19 14:39 Discontinued IV 999 mls/hr Diltiazem [Cardizem] Med 02/22/19 13:38 Discontinued 15 mg IV NOW ONE Levofloxacin 500 mg/D5w [Levaquin 500 mg/D5w] Med 02/22/19 15:30 Discontinued 500 mg in 100 ml IV NOW BIPAP Stat Oth 02/22/19 16:08 Active EKG [EKG] Stat Ther 02/22/19 13:29 Draft EKG [EKG] Stat Ther 02/22/19 15:54 Ordered Transfer/Admit Order [TRANSFER] Routine Transfer 02/22/19 16:02 Ordered Result Diagrams: 02/22/19 13:31 02/22/19 13:31 - EKG 1 Time of EKG reading by physician:: 13:33 EKG Read and Signed by:: Primo Thurman EKG Interpretation (*Must complete 3 of following elements*): Abnormal (marked ST abnormality, possible anteroseptal subendocardial injury; prolonged QT) Rate: 118 Rhythm: atrial fibrillation with rapid ventricular response Drayden: normal Comments: marked ST abnormality, possible inferior subendocardial injury; - XRAY 1 XRAY Study: Chest Impression: See EMR Report ( EXAM: CHEST-1 VIEW HISTORY: altered MSE TECHNIQUE: Single view COMPARISON: 12/09/2018 FINDINGS: The lungs are well expanded. The heart is borderline mildly prominent. The vessels are not distended. There are no infiltrates. No effusion identified. IMPRESSION: Stable chest Electronically signed by Viktor Barrett 02/22/2019 1:59 PM 02/22/19 1359 Interpreting Physician: Viktor Barrett MD Dictated Date/Time: 02/22/19 1359 cc: Primo Thurman MD; Perez Martel MD) - CT/MRI 1 CT Study: Head Impression: See EMR Report ( EXAM: CT HEAD W/O CONTRAST HISTORY: SUDDEN ALTERED MSE, ON COUMADIN TECHNIQUE: CT head without contrast COMPARISON: 11/10/2017 FINDINGS: No parenchymal hemorrhage. No epidural or subdural hematoma. No subarachnoid hemorrhage. Mild atrophy with chronic microvascular ischemic changes. No mass identified on this noncontrasted exam. No hydrocephalus. No sinus opacification. IMPRESSION: 1.No hemorrhage 2.There is atrophy with chronic microvascular ischemic changes similar to the prior study This exam was performed using automated exposure control, adjustment of mA or kV according to patient size, and/or use of iterative reconstruction technique. Electronically signed by Viktor Barrett 02/22/2019 2:17 PM 02/22/19 1417 Interpreting Physician: Viktor Barrett MD Dictated Date/Time: 02/22/19 1415 cc: Primo Thurman MD; Perez Martel MD) - CONSULTS/PCP/HOSPITALIST Notification #1 *Consult/PCP/Hospitalist*: Dr. Martel Time Discussed: 16:00 Reason/Comments: Dr. Thurman consulted with Dr. Martel about patient. Consult Disposition: Admit Departure - Departure Date of Disposition Decision: 02/22/19 Time of Disposition Decision: 16:01 DIAGNOSIS: Paroxysmal atrial fibrillation, Altered mental status Disposition: ADMITTED INPATIENT 09 Certified Medical Emergency: Emergent Condition: Critical - Critical Care Note This patient required my direct & personal management of CC.: Yes Total Time (mins): 47 Critical Care Statement: This patient required my direct personal management to treat or rule out processes, the absence of which, could potentiallly result in sudden, clinically significant life or limb threatening deterioration. Attestation - Physician/ EVELYN Attestation The physician spent face to face time with patient:: Yes Advanced Practice Provider documentation review:: Supervising physician onsite and consulted in the evaluation and care of this patient. The physician did have a face to face encounter with the patient. This chart was documented by the indicated scribe, (Sadie Lowe Scribe) and accurately reflects the services I performed and decisions made by me, Primo Thurman MD, as attested by the provider's signature.
[2019-02-22] MEDS ORDERED: NS 1,000 ML IV SCH (17:00)
[2019-02-22 17:02] LABS: BILIRUBIN URINE NEGATIVE (NEGATIVE); BLOOD URINE NEGATIVE (NEGATIVE); COLOR YELLOW; GLUCOSE URINE 1000 mg/dL (NEGATIVE); KETONE URINE TRACE mg/dL (NEGATIVE); LEUKOCYTES URINE TRACE (NEGATIVE); NITRITE URINE NEGATIVE (NEGATIVE); PH URINE 5.5; PROTEIN URINE TRACE mg/dL (NEGATIVE); SP GRAVITY URINE 1.021; TURBIDITY URINE CLEAR (CLEAR); URINE SOURCE CATH; UROBILINOGEN URINE NORMAL (NORMAL)
[2019-02-22 17:03] LABS: UR EPITHELIAL CELLS >10 /HPF (<10); URINE BACTERIA NEGATIVE /HPF; URINE RBC <10 /HPF (<10); URINE WBC <10 /HPF (<10)
[2019-02-22] MEDS ORDERED: ATIVAN IV PRN (17:42)
[2019-02-22] MEDS: MORPHINE IV PRN ×3 (17:49→18:52)
[2019-02-22] MEDS ORDERED: ATROPINE 1 % OPHTH SOLN SL PRN (17:50)
[2019-02-22 17:56] VITALS: BP 66/31
[2019-02-22] MEDS ORDERED: TRANSDERM-SCOP TD ONE (18:32)
--- NOTE | 2019-02-22 19:09 | HISTORY AND PHYSICAL ---
CHIEF COMPLAINT: Altered mental status, increased work of breathing, aspiration, low blood pressure. HISTORY OF PRESENT ILLNESS: He is a 78-year-old white gentleman who came to the emergency room by EMS with altered mental status. Family states he was unresponsive prior to arrival. The last time saw him this morning before cataract surgery. The patient had low blood pressure, dehydrated. Emergency room workup was reviewed. He has been hospitalized basically for hypotension, aspiration pneumonia and placed on BiPAP. The patient was on hospice care which is revoked. The patient was discharged from this hospital in 11/2018. After arriving to the floor, the patient's condition deteriorated and family decided on comfort care. Requesting to discontinue IV fluids and BiPAP, continue on oxygen, scopolamine patch, atropine drops, morphine and Ativan. I did examine the patient at [facility]. The family all concurred, and at this time the patient is waiting for demise. PAST MEDICAL HISTORY: 1. Type 2 diabetes. 2. Paroxysmal atrial fibrillation. 3. Sleep apnea. 4. Hyperlipidemia. 5. History of CVA. 6. Hypothyroidism. 7. COPD. 8. History of prostatitis. 9. Kidney stones. 10. Dysautonomia. 11. Restless legs syndrome. 12. Umbilical hernia. PAST SURGICAL HISTORY: Penile prosthesis device; uvulopalatopharyngoplasty; right cataract surgery; melanoma excision on the face, from his right zygoma; multiple prostate biopsies. MEDICATIONS: Mirapex 0.5 at bedtime, metformin 500 daily, Aricept 5 mg at bedtime, Synthroid 100 mcg daily, simvastatin 40, Flomax 0.4, MiraLAX 17 g, Proscar 5 mg daily, Protonix 40 daily, Ativan 0.5 p.o. b.i.d., Zoloft 25 daily. ALLERGIES: Xanax and aspirin. SOCIAL HISTORY: . No smoking, no alcohol. Living Will: Do Not Resuscitate/Allow Natural . FAMILY HISTORY: Noncontributory. REVIEW OF SYSTEMS: Not able to obtain. PHYSICAL EXAMINATION: VITAL SIGNS: On examination, he was in atrial fibrillation. Blood pressure is 60/30. GENERAL: Obtunded. He is on 100% nonrebreather. Not able to talk, with respiratory distress. LUNGS: Rhonchi on both sides. HEART: Rapid atrial fibrillation. ABDOMEN: Belly is soft, nontender. Good bowel sounds. NEUROLOGIC: Not able to assess neurological exam. LABORATORY DATA: CBC: White cell count 14, hematocrit 34, platelets 163,000. Blood gas pH is 7.10, pCO2 is 67, pO2 is 73, on 50% Ventimask. Sodium 130, potassium 3.6, BUN 33, creatinine 1.0, glucose 220. LFTs are normal. Urinalysis is clear. DIAGNOSTIC DATA: Chest x-ray reported stable chest. CT head: No hemorrhage, chronic atrophy. ASSESSMENT AND PLAN: 1. A 78-year-old white gentleman admitted to the hospital with the following problems: Altered mental status and obtunded. Head CT is negative. 2. Rapid atrial fibrillation. 3. Aspiration pneumonia and comorbid conditions as above. Significant respiratory acidosis, hypoxemia. 4. Plan of care: At the patient and family request, living will Do Not Resuscitate/Allow Natural ; discontinue any aggressive supportive care. At this time comfort care which includes morphine, Ativan, scopolamine patch and atropine drops, and waiting for demise. Family has agreed upon. We will follow up. cc: Romaine Martel MD
== END 2019-02-22 20:05 | disposition expired | DRG 640 ==
LOC: SUPCPDRO → ED 13:04 → EDIPHOLD 16:24 → 2N 16:36
PROVIDERS: ADMIT Internal Medicine; ATTEND Internal Medicine